=== PATIENT | male | born 1975 | race Caucasian/White ===

== ENCOUNTER → 2017-07-12 | Outpatient (REF) | payer OTHER | LOC: M LAB REF 16:30 | DX: J02.9 Acute pharyngitis, unspecified (principal) ==

== ENCOUNTER → 2017-11-13 | Outpatient (CLI) | payer OTHER | LOC: M WUC 13:14 | DX: S29.011A Strain of muscle and tendon of front wall of thorax, initial encounter (principal); X58.XXXA Exposure to other specified factors, initial encounter; Y92.9 Unspecified place or not applicable | CPT/HCPCS: 71101 ==

== ENCOUNTER → 2020-05-06 | Outpatient (CLI) | payer OTHER ==
--- NOTE | 2020-05-06 15:37 | REP ---
INDICATION: RADICULOPATHY COMPARISON: None. TECHNIQUE: AP, lateral, and swimmers views. FINDINGS: Alignment and kyphosis is maintained. Vertebral bodies intact. No acute fracture / compression injury or subluxation. No degenerative changes. Paravertebral soft tissues are normal. IMPRESSION: Normal age-appropriate thoracic spine series. <Electronically signed by Jose Martin Giles > 05/06/20 0338
== END ==
LOC: M WUC 15:18
PROVIDERS: ATTEND Internal Medicine
DX: M54.14 Radiculopathy, thoracic region (principal)

== ENCOUNTER → 2023-05-15 | Outpatient (CLI) | payer OTHER | LOC: M WUC 15:13 | PROVIDERS: ATTEND Nurse Practitioner Family | DX: R05.9 Cough, unspecified (principal) ==

== ENCOUNTER → 2025-03-31 | Outpatient (CLI) | payer OTHER | LOC: M WUC 15:37 | PROVIDERS: ATTEND Physician Assistant | DX: S60.011A Contusion of right thumb without damage to nail, initial encounter (principal); X58.XXXA Exposure to other specified factors, initial encounter; Y92.9 Unspecified place or not applicable; Y99.9 Unspecified external cause status; Y93.9 Activity, unspecified ==